=== PATIENT | male | born 1990 | race African-American/Black ===

== ENCOUNTER 2016-09-23 09:56 | Emergency (ER) | payer OTHER ==
[~2016-09-23] VITALS: Ht 182.9 cm; Wt 106.6 kg
--- NOTE | ~2016-09-23 | EKG ---
[address] [place] [address] ELECTROCARDIOGRAM REPORT Name: MINERVA VIVAS Room #: PRE Wade#: [id number] Admission: Attend Phys: Discharge: Date of : 86 Report #: [id number] THIS REPORT FOR: //name// [facility] ED Test Date: 2016-09-23 Test Time: 10:00:42 Pat Name: MINERVA VIVAS Department: Room: Gender: [employer]: DHARA : 1990 Requested By: Ignacio Zhong Order Number: [id number] MD: Louis Valerio Measurements Intervals [place] Rate: 58 P: 44 NV: 180 QRS: 11 QRSD: 102 T: 29 QT: 404 QTc: 397 Interpretive Statements Sinus rhythm Compared to ECG 12/28/2015 13:32:15 No significant changes Electronically Signed On 09-23-2016 10:16:47 CDT by Louis Valerio [email or web address] <ELECTRONICALLY SIGNED> By: Louis Valerio MD 09/23/16 1016 1000 Westley Valerio MD /DONNA
[~2016-09-23 09:56] MED LIST: CARAFATE 1 GM TA1 G1 PO; PRILOSEC OTC20 MG PO
[2016-09-23 10:05] VITALS: BP 131/80
== END 2016-09-23 10:35 | disposition home or self-care (01) ==
LOC: ER 09:56
DX: R07.89 Other chest pain (principal); F41.9 Anxiety disorder, unspecified; K21.9 Gastro-esophageal reflux disease without esophagitis; Z88.1 Allergy status to other antibiotic agents; Z88.0 Allergy status to penicillin